=== PATIENT | female | born 1960 | race Caucasian/White ===

== ENCOUNTER 2017-11-17 14:10 | Outpatient (CLI) | payer BC | END 2017-11-17 14:11 | disposition home or self-care (01) | LOC: BICMAMMO 14:10 | PROVIDERS: ATTEND Family Medicine | DX: Z12.31 Encounter for screening mammogram for malignant neoplasm of breast (principal) | CPT/HCPCS: 77063; 77067 ==

== ENCOUNTER 2019-01-25 12:13 | Emergency (ER) | payer BC ==
[2019-01-25] MEDS ORDERED: Ondansetron PF 4 MG/2 ML Vial ONE ×2 (12:39→15:17)
[2019-01-25 12:53] LABS: #Lymphocytes 0.4 thou/uL (1.20-3.40); #Monocytes 0.2 thou/uL (0.11-0.59); #Neutrophils 6.2 thou/uL (1.40-6.50); %Basophils 0.2 % (0.0-1.0); %Eosinophils 0.4 % (0.0-10.0); %Lymphocytes 5.8 % (21.0-51.0); %Monocytes 2.3 % (0.0-10.0); %Neutrophils 91.4 % (42.0-75.0); Hemoglobin 14.6 g/dL (12.0-16.0); Mean Corpuscular HGB CONC 34.3 g/dL (32.0-36.0); Mean Corpuscular Hemoglobin 31.1 pg (27.0-31.0); Mean Corpuscular Volume 90.6 fL (78.0-98.0); Mean Platelet Volume 6.8 fL (7.4-10.4); Platelet Count 241 thou/uL (130-400); Red Blood Cell (RBC) Count 4.69 mill/uL (4.20-5.40); White Blood Cell (WBC) Count 6.8 thou/uL (4.8-10.8)
[2019-01-25 13:15] LABS: ALT (SGPT) 15 U/L (8-55); AST (SGOT) 16 U/L (5-34); Albumin 4.7 g/dL (3.5-5.0); Alkaline Phosphatase 86 U/L (40-150); Anion Gap 15 mmol/L (10-20); BUN (Urea Nitrogen) 14 mg/dL (9.8-20.1); Bilirubin, Total 1.1 mg/dL (0.2-1.2); Calc. Creatinine Clearance 0 mL/min (70-130); Calcium 9.8 mg/dL (7.8-10.44); Carbon Dioxide 21 mmol/L (22-29); Chloride 106 mmol/L (98-107); Estimated GFR-MDRD 72; Globulin 2.9 g/dL (2.4-3.5); Glucose 139 mg/dL (70-105); Lipase 394 U/L (8-78); Potassium 3.9 mmol/L (3.5-5.1); Protein, Total 7.6 g/dL (6.0-8.3); Sodium 138 mmol/L (136-145)
--- NOTE | 2019-01-25 15:04 | CT ---
CT abdomen and pelvis with IV contrast HISTORY: Abdomen pain. COMPARISON: 11/18/2006. FINDINGS: The lung bases are clear. Postoperative changes of the stomach. Gallbladder surgically abse nt. Mild distention of the biliary system. Small amount of gas within the left biliary system. The spleen, kidneys, adrenal glands, pancreas are unremarkable. Calcification within the arterial str uctures. No enlarged lymph nodes or free fluid. Urinary bladder is incompletely distended. Degenerative changes lumbar spine. IMPRESSION: No acute inflammatory abnormalities are demonstrated. Small amount of pneumobilia is nonspecific. Usually benign. 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 No evidence of complication. Atherosclerosis.
[2019-01-25] MEDS ORDERED: Morphine 4 MG/ML VIAL ONE (15:17)
== END 2019-01-25 16:04 | disposition home or self-care (01) ==
LOC: ERS 12:13
DX: R11.2 Nausea with vomiting, unspecified (principal); R19.7 Diarrhea, unspecified
CPT/HCPCS: 74177; 80053; 83690; 84484; 85025; 93005; J0500; J2270; J2405

== ENCOUNTER 2024-03-01 09:51 | Outpatient (CLI) | payer OTHER | END 2024-03-01 09:52 | disposition home or self-care (01) | LOC: SCSMRI 09:51 | PROVIDERS: ATTEND Nurse Practitioner Family | DX: M54.14 Radiculopathy, thoracic region (principal); M51.35 Other intervertebral disc degeneration, thoracolumbar region; G96.191 Perineural cyst | CPT/HCPCS: 72146 ==